=== PATIENT | male | born 1980 | race Caucasian/White ===

== ENCOUNTER → 2017-06-03 | Outpatient (CLI) | payer OTHER ==
--- NOTE | 2017-06-03 20:58 | MR ---
EXAMINATION TYPE: MR hand LT wo con DATE OF EXAM: 06/03/2017 COMPARISON: NONE HISTORY: 37-year-old male with left wrist/hand pain x 4 months, fell and caught himself with hands Technique: Multiplanar, multisequence images of the left hand were acquired. FINDINGS: There is unusual truncated appearance to the distal scaphoid pole with some bone fragments interposed between the scaphoid and trapezium measuring up to 5 mm. Uncertain if this represents rotary subluxa tion of the scaphoid. There is slight dorsal tilt of the lunate on the sagittal sequence. Spurring of the trapezium with prominent intraosseous cystic changes suggesting underlying triscaphe joint degen erative change. This exam is centered over the hand and these proximal carpal row is not well evaluat ed. No significant joint effusion. The flexor and extensor tendons show no gross abnormality. No suspicious bone marrow replacement or acute fracture identified IMPRESSION: 1. Unusual truncated appearance to the distal scaphoid pole with some bone fragments interposed betwe en the scaphoid and trapezium measuring up to 5 mm. The proximal carpal row is incompletely visualize d due to centering over the hand. Uncertain if this appearance reflects prior partial carpal bone res ection or rotatory subluxation secondary to underlying ligamentous injury. The lunate does appear to have some dorsal tilt on the sagittal series. Correlate for any DISI. Radiographic correlation recomm ended. 2. 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
== END | disposition home or self-care (01) ==
LOC: RADMRIMAIN 13:50
PROVIDERS: ATTEND Psychiatry & Neurology Pain Medicine
DX: M79.642 Pain in left hand (principal); M54.2 Cervicalgia; M54.5 Low back pain

== ENCOUNTER → 2017-07-01 | Outpatient (CLI) | payer OTHER ==
--- NOTE | 2017-07-01 17:25 | MR ---
EXAMINATION TYPE: MR cspine/lspine wo con DATE OF EXAM: 07/01/2017 COMPARISON: Plain film 08/08/2016 HISTORY: cervicalgia, lumbago TECHNIQUE: Multiplanar, multisequence imaging of the lumbar and cervical spine is performed without I V contrast. FINDINGS: Cervical spine MRI: Loss of normal cervical lordosis may be due to muscle spasm. Cervical cord signal is normal. Cervical vertebral bodies show preserved height, alignment, there is minimal endplate dis cogenic marrow signal change with spondylosis at C5-6, there is associated loss of disc height and si gnal. C2-3: Unremarkable C3-4: Within normal limits C4-5: No significant abnormality C5-6: There is a posterior extension of endplate disc complex causing anterolateral mass effect on th e thecal sac extending towards the left, there is bilateral foraminal encroachment left greater than right. On mild central stenosis. C6-7: Right posterior paracentral extension of endplate disc complex causes minimal anterior lateral mass effect on the thecal sac, foraminal encroachment on the right greater than left. C7-T1: Unremarkable IMPRESSION: Mild degenerative disc disease Lumbar spine MRI: Sagittal images of the lumbar spine show vertebral body heights and alignment to appear satisfactory. The intervertebral discs demonstrate mild loss of height and hydration at L4-5 and L5-S1. The conus medullaris is normal in position and signal. The bone marrow signal intensity is within normal limi ts. L5-S1: Small central posterior disc bulge causes minimal anterior mass effect on the thecal sac. No s ignificant central stenosis and there is mild foraminal encroachment present due to lateral extension of endplate disc complex left greater than right. L4-5: Increased signal at the posterior aspect of this is compatible with annular tear. Posterior bro ad-based disc bulge causes minimal anterior mass effect on the thecal sac. No foraminal encroachment. No other significant foraminal encroachment, central stenosis or evident disc herniation. IMPRESSION: Mild degenerative disc disease.
== END | disposition home or self-care (01) ==
LOC: RADMRIMAIN 14:07
PROVIDERS: ATTEND Psychiatry & Neurology Pain Medicine
DX: M50.30 Other cervical disc degeneration, unspecified cervical region (principal); M51.36 Other intervertebral disc degeneration, lumbar region; M79.642 Pain in left hand
CPT/HCPCS: 72141; 72148

== ENCOUNTER 2018-08-10 09:53 | Observation (INO) | payer OTHER ==
[2018-08-10] MEDS ORDERED: SODIUM CHLORIDE 0.9% 1,000 ML IV ONE ×3 (10:15→13:44)
[2018-08-10] MEDS ORDERED: ACETAMINOPHEN TAB 500 MG TAB PO STA (10:15)
--- NOTE | 2018-08-10 10:37 | ED ---
General Adult HPI - General Chief complaint: Shortness of Breath Stated complaint: dizziness, shaking, sob Time Seen by Provider: 08/10/18 10:15 Source: patient, RN notes reviewed, old records reviewed Mode of arrival: ambulatory Limitations: no limitations - History of Present Illness Initial comments: 38-year-old male presents for evaluation of dyspnea and facial swelling. Patient had right central incisor pulled at his dentist office this morning. He was prescribed amoxicillin and Motrin. After the procedure the patient began to develop some dyspnea. He reports that he's had facial swelling for the past 2 days which is treated prior to tooth extraction. Over the tooth was pulled he was told that he had a large abscess which according to the patient was restrained. He took his amoxicillin this morning as well as Motrin however symptoms of worsened. He does have right-sided facial swelling which she states is improved from previous. His had subjective fever and chills. No cough. No history of drugs or alcohol use. - Related Data Home Medications Medication Instructions Recorded Confirmed Amoxicillin 1,000 mg PO ONCE 08/10/18 08/10/18 Amoxicillin 500 mg PO Q8H 08/10/18 08/10/18 Ibuprofen 800 mg PO TID 08/10/18 08/10/18 Allergies Allergy/AdvReac Type Severity Reaction Status Date / Time No Known Allergies Allergy Verified 08/10/18 10:36 Review of Systems ROS Statement: Those systems with pertinent positive or pertinent negative responses have been documented in the HPI. ROS Other: All systems not noted in ROS Statement are negative. Past Medical History Past Medical History: GERD/Reflux History of Any Multi-Drug Resistant Organisms: None Reported Past Surgical History: Hernia Repair, Orthopedic Surgery Additional Past Surgical History / Comment(s): L wrist Past Psychological History: No Psychological Hx Reported Smoking Status: Former smoker Past Alcohol Use History: None Reported Past Drug Use History: None Reported General Exam Limitations: no limitations General appearance: lethargic Head exam: Present: atraumatic, normocephalic Eye exam: Present: PERRL, EOMI, periorbital swelling (Right periorbital swelling , and swelling over the right maxillary sinus), periorbital tenderness Neck exam: Present: normal inspection. Absent: tenderness, meningismus Respiratory exam: Present: normal lung sounds bilaterally. Absent: respiratory distress, wheezes Cardiovascular Exam: Present: normal rhythm, tachycardia GI/Abdominal exam: Present: soft. Absent: distended, tenderness Extremities exam: Present: normal inspection, normal capillary refill. Absent: pedal edema Neurological exam: Present: alert, oriented X3. Absent: motor sensory deficit Psychiatric exam: Present: normal affect, normal mood Skin exam: Present: warm, dry, intact. Absent: cyanosis, diaphoretic Course Vital Signs 08/10/18 08/10/18 08/10/18 09:58 10:12 10:40 Temperature 99.9 F H Pulse Rate 133 H 128 H Respiratory 18 Rate Blood Pressure 134/98 125/79 O2 Sat by Pulse 95 96 92 L Oximetry 08/10/18 08/10/18 08/10/18 11:00 11:20 12:00 Temperature Pulse Rate 124 H 117 H 116 H Respiratory Rate Blood Pressure 125/79 133/89 112/68 O2 Sat by Pulse 93 L 92 L 94 L Oximetry 08/10/18 08/10/18 08/10/18 12:40 13:00 13:30 Temperature Pulse Rate 112 H 105 H Respiratory Rate Blood Pressure 111/70 111/70 105/68 O2 Sat by Pulse 95 96 Oximetry 08/10/18 08/10/18 14:00 14:30 Temperature Pulse Rate 104 H 96 Respiratory Rate Blood Pressure 105/68 105/68 O2 Sat by Pulse 96 96 Oximetry EKG Findings - EKG Comments: EKG Findings:: EKG: Sinus tachycardia, rate of 120, DC interval 152, QRS duration 72, QTC [address] segment elevation or depression Medical Decision Making - Medical Decision Making 38-year-old male presenting for evaluation facial swelling and pain, and dyspnea. Patient had tooth extracted this morning with abscess drainage by his dentist. Initial evaluation, patient is febrile and tachycardic. Laboratory studies obtained. Patient has normal CBC although he has left shift with 9.1 neutrophils. He has acute kidney injury with a creatinine of 1.56. Chest x- ray is negative for focal pneumonia. CT is obtained of the orbit and maxillary sinus, this does show concern for abscess formation, this was likely abscess drained by his dentist earlier today. Symptoms may be related to ALLERGIC reaction, patient was on amoxicillin. He will be switched to clindamycin. He is admitted for continued IV hydration and continued IV antibiotics. - Lab Data Result diagrams: 08/10/18 10:29 08/10/18 10:29 Lab Results 08/10/18 08/10/18 08/10/18 Range/Units 10:29 10:29 10:29 WBC 10.5 (3.8-10.6) k/uL RBC 5.38 (4.30-5.90) m/uL Hgb 15.2 (13.0-17.5) gm/dL Hct 46.7 (39.0-53.0) % MCV 86.8 (80.0-100.0) fL MCH 28.3 (25.0-35.0) pg MCHC 32.7 (31.0-37.0) g/dL RDW 13.4 (11.5-15.5) % Plt Count 190 (150-450) k/uL Neutrophils % 87 % Lymphocytes % 9 % Monocytes % 3 % Eosinophils % 0 % Basophils % 0 % Neutrophils # 9.1 H (1.3-7.7) k/uL Lymphocytes # 0.9 L (1.0-4.8) k/uL Monocytes # 0.3 (0-1.0) k/uL Eosinophils # 0.0 (0-0.7) k/uL Basophils # 0.0 (0-0.2) k/uL PT (9.0-12.0) sec INR (<1.2) APTT (22.0-30.0) sec Sodium (137-145) mmol/L Potassium (3.5-5.1) mmol/L Chloride (98-107) mmol/L Carbon Dioxide (22-30) mmol/L Anion Gap mmol/L BUN (9-20) mg/dL Creatinine (0.66-1.25) mg/dL Est GFR (CKD-EPI)AfAm (>60 ml/min/1.73 sqM) Est GFR (CKD-EPI)NonAf (>60 ml/min/1.73 sqM) Glucose (74-99) mg/dL Plasma Lactic Acid Randy 1.5 (0.7-2.0) mmol/L Calcium (8.4-10.2) mg/dL Magnesium (1.6-2.3) mg/dL Total Bilirubin (0.2-1.3) mg/dL AST (17-59) U/L ALT (21-72) U/L Alkaline Phosphatase (38-126) U/L Total Creatine Kinase 37 L (55-170) U/L CK-MB (CK-2) 0.3 (0.0-2.4) ng/mL CK-MB (CK-2) Rel Index 0.8 Troponin I <0.012 (0.000-0.034) ng/mL Total Protein (6.3-8.2) g/dL Albumin (3.5-5.0) g/dL 08/10/18 08/10/18 Range/Units 10:29 10:29 WBC (3.8-10.6) k/uL RBC (4.30-5.90) m/uL Hgb (13.0-17.5) gm/dL Hct (39.0-53.0) % MCV (80.0-100.0) fL MCH (25.0-35.0) pg MCHC (31.0-37.0) g/dL RDW (11.5-15.5) % Plt Count (150-450) k/uL Neutrophils % % Lymphocytes % % Monocytes % % Eosinophils % % Basophils % % Neutrophils # (1.3-7.7) k/uL Lymphocytes # (1.0-4.8) k/uL Monocytes # (0-1.0) k/uL Eosinophils # (0-0.7) k/uL Basophils # (0-0.2) k/uL PT 10.1 (9.0-12.0) sec INR 1.0 (<1.2) APTT 20.9 L (22.0-30.0) sec Sodium 141 (137-145) mmol/L Potassium 5.1 (3.5-5.1) mmol/L Chloride 106 (98-107) mmol/L Carbon Dioxide 21 L (22-30) mmol/L Anion Gap 14 mmol/L BUN 25 H (9-20) mg/dL Creatinine 1.56 H (0.66-1.25) mg/dL Est GFR (CKD-EPI)AfAm 64 (>60 ml/min/1.73 sqM) Est GFR (CKD-EPI)NonAf 56 (>60 ml/min/1.73 sqM) Glucose 123 H (74-99) mg/dL Plasma Lactic Acid Randy (0.7-2.0) mmol/L Calcium 9.7 (8.4-10.2) mg/dL Magnesium 1.9 (1.6-2.3) mg/dL Total Bilirubin 1.0 (0.2-1.3) mg/dL AST 30 (17-59) U/L ALT 22 (21-72) U/L Alkaline Phosphatase 96 (38-126) U/L Total Creatine Kinase (55-170) U/L CK-MB (CK-2) (0.0-2.4) ng/mL CK-MB (CK-2) Rel Index Troponin I (0.000-0.034) ng/mL Total Protein 7.8 (6.3-8.2) g/dL Albumin 4.3 (3.5-5.0) g/dL Disposition Clinical Impression: Acute kidney injury, Dehydration Disposition: ADMITTED IP TO THIS HOSP Condition: Stable Is patient prescribed a controlled substance at d/c from ED?: No Referrals: None,Stated [Primary Care Provider] - 1-2 days Decision to Admit Reason: Admit from EC Decision Date: 08/10/18 Decision Time: 14:10
[2018-08-10 10:42] LABS: Basophils % (A) 0 %; Eosinophils % (A) 0 %; HCT 46.7 % (39.0-53.0); HGB 15.2 gm/dL (13.0-17.5); Lymphocytes # (A) 0.9 k/uL (1.0-4.8); Lymphocytes % (A) 9 %; MCH 28.3 pg (25.0-35.0); MCHC 32.7 g/dL (31.0-37.0); MCV 86.8 fL (80.0-100.0); Mean Platelet Volume 7.8; Monocytes # (A) 0.3 k/uL (0-1.0); Monocytes % (A) 3 %; Neutrophils # (A) 9.1 k/uL (1.3-7.7); Neutrophils % (A) 87 %; Platelet Count 190 k/uL (150-450); RBC 5.38 m/uL (4.30-5.90); RDW 13.4 % (11.5-15.5); WBC 10.5 k/uL (3.8-10.6)
[2018-08-10] MEDS ORDERED: ACETAMINOPHEN IV (For NPO) 1,000 MG in EMPTY BAG 1 BAG IVPB ONE (10:45)
[2018-08-10 10:49] LABS: Albumin 4.3 g/dL (3.5-5.0); Calcium 9.7 mg/dL (8.4-10.2); Magnesium 1.9 mg/dL (1.6-2.3); Potassium 5.1 mmol/L (3.5-5.1); Total Protein 7.8 g/dL (6.3-8.2)
[2018-08-10] MEDS ORDERED: KETOROLAC 30 MG/ML 1 ML VIAL IVP STA (10:59)
[2018-08-10] MEDS ORDERED: CLINDAMYCIN 600 MG in DEXTROSE 5% IN WATER 50 ML IVPB STA ×2 (11:05)
[2018-08-10 11:07] LABS: Creatine Kinase 37 U/L (55-170)
[2018-08-10 11:17] LABS: Prothrombin Time 10.1 sec (9.0-12.0)
[2018-08-10 11:18] LABS: Creatine Kinase MB 0.3 ng/mL (0.0-2.4); Troponin I <0.012 ng/mL (0.000-0.034)
[2018-08-10 11:28] LABS: Partial Thromboplastin Time 20.9 sec (22.0-30.0)
--- NOTE | 2018-08-10 11:57 | CT ---
EXAMINATION TYPE: CT facial bones w con DATE OF EXAM: 08/10/2018 COMPARISON: None HISTORY: Rt eye, Rt cheek swelling after tooth being pulled this AM CT DLP: 286.8 mGycm Automated exposure control for dose reduction was used. CONTRAST: CT scan of the facial bones is performed with IV Contrast, patient injected with 100 mL of Isovue 300 . TECHNIQUE: CT scan of the sinuses is performed without contrast, axial images are obtained, coronal r eformatted images are also reviewed. FINDINGS: Lucency is present in the right maxilla compatible with patient's history of recent tooth r emoval, gas density punctate focus also present at the site of tooth removal, there may be periapical abscess or the gas density may be due to the procedure. Immediately superficial to the maxilla at th is level there is a low density region with small punctate focus of gas measuring 16 x 6 x 18 mm with wall enhancement suggestive of small abscess, indeterminate fluid collection. Subcutaneous edema cor relates with patient's history of facial swelling. Orbits show symmetric appearance. Mucosal disease is present within the maxillary sinus on the right, ostiomeatal units are patent alth ough the infundibulum is narrowed on the right due to sinus disease, inflammatory change also present in the ethmoid air cells. IMPRESSION: Postprocedural changes as described. Correlate for possible abscess or fistula to the max illa at the site of patient's dental procedure.
--- NOTE | 2018-08-10 12:32 | XR ---
EXAMINATION TYPE: XR chest 2V DATE OF EXAM: 08/10/2018 COMPARISON: 08/08/2016 HISTORY: Fever, cough and shortness of breath TECHNIQUE: Frontal and lateral views of the chest are obtained. FINDINGS: There is no focal air space opacity, pleural effusion, or pneumothorax seen. Mild central peribronchial cuffing is seen. The cardiac silhouette size is within normal limits. The osseous str uctures are intact. IMPRESSION: No focal consolidation to suggest pneumonia. Mild central peribronchial cuffing. Correla te for bronchitis.
[2018-08-10] MEDS ORDERED: NALOXONE 0.4 MG/ML 1 ML VIAL IV PRN (14:59)
[2018-08-10] MEDS ORDERED: MORPHINE SULFATE 4 MG/ML SYRINGE IVP STA (15:03)
[2018-08-10] MEDS ORDERED: ALPRAZolam 0.25 MG TAB PO PRN (17:09)
[2018-08-10] MEDS: CLINDAMYCIN 600 MG in DEXTROSE 5% IN WATER 50 ML IVPB SCH ×2 (19:00)
[2018-08-10] MEDS: SODIUM CHLORIDE 0.9% 1,000 ML IV SCH ×2 (19:00→21:53)
[2018-08-10] MEDS ORDERED: TEMAZEPAM 15 MG CAP PO PRN (21:53)
[2018-08-10] MEDS: MORPHINE SULFATE 4 MG/ML SYRINGE IV PRN (21:56)
[2018-08-10] MEDS: HEPARIN SODIUM,PORCINE 5,000 UNIT/ML 1 ML VIAL SQ SCH (21:56)
[2018-08-10 22:43] LABS: Appearance,Urine Clear (Clear); Bilirubin,Urine Negative (Negative); Blood,Urine Trace (Negative); Color,Urine Light Yellow; Glucose,Urine (UA) Negative (Negative); Ketones,Urine Negative (Negative); Leukocyte Esterase,Urine Negative (Negative); Mucus,Urine Rare /hpf; Nitrite,Urine Negative (Negative); Protein,Urine Negative (Negative); Specific Gravity,Urine 1.014 (1.001-1.035); Urobilinogen,Urine <2.0 mg/dL (<2.0)
[2018-08-10] MEDS: AMPICILLIN-SULBACTAM 3 GM in SODIUM CHLORIDE 0.9% 100 ML IVPB SCH (23:49)
--- NOTE | 2018-08-11 00:49 | HP ---
HISTORY AND PHYSICAL DATE OF SERVICE: 08/10/2018. CHIEF COMPLAINT: Pain and swelling of the right side of the face and dehydration. HISTORY OF PRESENT ILLNESS: This 38-year-old gentleman, not being followed by any primary care physician in the outpatient setting, has a past history GERD, and DJD, also had a dental abscess on the right central incisor. The patient went to the dental office and the patient was prescribed amoxicillin and Motrin after extraction. The patient had increasing pain and swelling. The patient came to [facility] and was admitted for evaluation and treatment. A facial CT scan was done which showed possible changes and abscess or in the maxilla also. There is no history of any fevers or rigors. No history of headache, loss of consciousness, seizures. PAST MEDICAL HISTORY: History of GERD, DJD, history of hernia repair. MEDICATIONS: Home medications are: 1. Amoxicillin 500 mg every 8 hours. 2. Bupropion 800 mg t.i.d. ALLERGIES: None. FAMILY HISTORY: History of liver disease, cancer, hepatitis C. SOCIAL HISTORY: Previous history of smoking. No history of alcohol intake. REVIEW OF SYSTEMS: ENT: As mentioned earlier. CARDIOVASCULAR: No angina. RESPIRATORY: As mentioned earlier. GI: No nausea or vomiting. : NO dysuria. NERVOUS SYSTEM: No numbness or weakness. ALLERGY/IMMUNOLOGY: None. MUSCULOSKELETAL: As mentioned. HEMATOLOGY: No history of anemia. ENDOCRINE: No history of diabetes or hypothyroidism. CONSTITUTIONAL: As mentioned. DERMATOLOGY: Negative. RHEUMATOLOGY: As mentioned earlier. PSYCHIATRY: As mentioned earlier. PHYSICAL EXAMINATION: Alert, oriented x3. Pulse 80, blood pressure 103/60, respirations 16, temperature normal, pulse ox 97% on room air. HEENT: Conjunctivae normal. Oral mucosa moist. Right-sided facial swelling and some tenderness also present on the right. Submandibular lymphadenopathy also present. CARDIOVASCULAR: S1 and S2 muffled. LUNGS: Breath sounds diminished at the bases. No rhonchi, no crackles. ABDOMEN: Soft, nontender. No masses palpable. LEGS: No edema, no swelling. NERVOUS SYSTEM: Higher functions as mentioned earlier. Moves all 4 limbs. No focal motor or sensory deficits. LYMPHATICS: No lymph nodes palpable in the neck, axillae or groin. SKIN: No ulcer, rash, bleeding. LABS: At this time shows WBC 10.2, hemoglobin 15.2, creatinine is 1.56. ASSESSMENT: 1. Right-sided dental abscess and cellulitis. 2. Increased creatinine with possible chronic kidney disease stage III. 3. Gastroesophageal reflux disease. 4. Degenerative joint disease. 5. Scoliosis. 6. Hernia repair. RECOMMENDATIONS AND DISCUSSION: In this 38-year-old gentleman who presented with multiple complex medical issues , we will monitor the patient closely, continue the current management and symptomatic treatment. Otherwise we will initiate broad-spectrum IV antibiotics. I would also recommend infectious disease evaluation and repeat labs. Symptomatic treatment of the pain. Guarded prognosis because of multiple complex medical issues. Further recommendations to follow. MMODL / IJN: [id number] / [id number]
[2018-08-11] MEDS: CLINDAMYCIN 600 MG in DEXTROSE 5% IN WATER 50 ML IVPB SCH ×4 (03:33→10:56)
[2018-08-11] MEDS: MORPHINE SULFATE 4 MG/ML SYRINGE IV PRN ×3 (03:33→23:37)
[2018-08-11] MEDS: AMPICILLIN-SULBACTAM 3 GM in SODIUM CHLORIDE 0.9% 100 ML IVPB SCH ×4 (05:03→23:29)
[2018-08-11] MEDS: SODIUM CHLORIDE 0.9% 1,000 ML IV SCH ×3 (05:03→18:27)
[2018-08-11] MEDS: HYDROcodone/APAP 5-325MG 1 EACH TAB PO PRN ×3 (05:05→20:49)
[2018-08-11] MEDS: HEPARIN SODIUM,PORCINE 5,000 UNIT/ML 1 ML VIAL SQ SCH ×2 (08:16→20:55)
[2018-08-11] MEDS: PANTOPRAZOLE 40 MG TABLET PO SCH (08:16)
[2018-08-11 09:05] LABS: ALT 21 U/L (21-72); AST 16 U/L (17-59); Alkaline Phosphatase 69 U/L (38-126); Anion Gap 9 mmol/L; Blood Urea Nitrogen 12 mg/dL (9-20); Calcium 8.5 mg/dL (8.4-10.2); Carbon Dioxide 24 mmol/L (22-30); Chloride 106 mmol/L (98-107); Glucose 94 mg/dL (74-99); Potassium 4.3 mmol/L (3.5-5.1); Sodium 139 mmol/L (137-145); Total Bilirubin 0.5 mg/dL (0.2-1.3); Total Protein 5.8 g/dL (6.3-8.2)
[2018-08-11 09:07] LABS: Basophils % (A) 0 %; Eosinophils % (A) 0 %; HCT 37.4 % (39.0-53.0); HGB 12.4 gm/dL (13.0-17.5); Lymphocytes # (A) 1.6 k/uL (1.0-4.8); Lymphocytes % (A) 17 %; MCH 29.3 pg (25.0-35.0); MCHC 33.2 g/dL (31.0-37.0); MCV 88.3 fL (80.0-100.0); Mean Platelet Volume 7.8; Monocytes # (A) 0.7 k/uL (0-1.0); Monocytes % (A) 8 %; Neutrophils # (A) 6.6 k/uL (1.3-7.7); Neutrophils % (A) 70 %; Platelet Count 195 k/uL (150-450); RBC 4.23 m/uL (4.30-5.90); RDW 13.5 % (11.5-15.5); WBC 9.4 k/uL (3.8-10.6)
--- NOTE | 2018-08-11 17:56 | P.CONS ---
History of Present Illness - Reason for Consult Consult date: 08/11/18 - Chief Complaint jaw pain - History of Present Illness 38 year old male with a history of dental problems was seen at the [facility] for an abscess of the right upper incisor which required extraction and antibiotic therapy was begun with oral Augmentin.despite the removal of the infected tooth and antibiotic therapy he continued to have increasing pain and swelling to the right upper jaw. He had [id number] medications to take at home along with antibiotic. It continued to worsen. Difficulty chewing and swallowing and became febrile. Consequently presented to the emergency center. Computed tomography scan was performed showing evidence of the significant infection in the area, calcium the patient was admitted for antibiotic therapy infectious diseases oral surgery consults in progress. It appears over the last day he is now considerably improved with the intravenous antibiotic therapy and current medications. He is still somewhat uncomfortable but is denying high-grade fevers chills or rigors or sweats. He is denying significant nausea or emesis. Able to eat soft food without difficulties. Review of Systems HEENT:headache is much improved, he has the difficulties with the significant pain to the right upper jaw into the right maxillary sinus. Lungs: Denies significant shortness of breath, cough, sputum production, or hemoptysis. Cardiovascular: Denies significant shortness of breath, chest pain, chest wall pain, orthopnea, dyspnea on exertion, syncope Gastrointestinal:Denies nausea, vomiting, diarrhea, constipation, hematemesis, melena, hematochezia. No no significant change of bowel habit noticed. Musculoskeletal: denies significant myalgias or arthralgias. No new joint swelling. Denies new back pain. Skin: Denies new rash or lesions. No new ulcers or wounds are related.. Neuro: Denies headache or visual change. Denies any new onset weakness or difficulty with ambulation. Denies falls or seizures. Psychiatric:Denies anxiety or depression. Endocrine: Denies significant fatigue, denies significant weight loss or weight gain. Past Medical History Past Medical History: GERD/Reflux, Osteoarthritis (OA) Additional Past Medical History / Comment(s): SCOLIOSIS,"2 BULGING DISC" "PINCHED NERVE", CHRONIC BACK PAIN, PAST BLEEDING ULCERS X2, ARHTITIS LT WRIST( PAST INJURY SHATTERED WRITS(SX), VLADEMAR CARPAL TUNNEL, ADHD CHILD. History of Any Multi-Drug Resistant Organisms: None Reported Past Surgical History: Hernia Repair, Orthopedic Surgery Additional Past Surgical History / Comment(s): 08-10-18 tooth extracted on abx/motrin other hx:L wrist sx(bone removed), egd, rt ing hernia repair. Past Anesthesia/Blood Transfusion Reactions: No Reported Reaction Additional Past Anesthesia/Blood Transfusion Reaction / Comm: has vivian had any blood transfusion Additional Psychological History / Comment(s): lives at the significant other. Pet dog in the home. Works as a milk pickup truck driver. No experience. Stopped smoking 1-1/2 years ago. Denies significant alcohol or recreational drug use. No international travel Smoking Status: Former smoker - Past Family History Mother Family Medical History: Cancer, Liver Disease Additional Family Medical History / Comment(s): colon ca, hep-c Father Family Medical History: Cancer, Coronary Artery Disease (CAD), Hypertension, Vascular Disorder Additional Family Medical History / Comment(s): stents, skin cancer Medications and Allergies Home Medications and Allergies Comment(s): Current Medications Acetaminophen (Tylenol Tab) 650 mg PO Q6HR PRN PRN Reason: Mild Pain or Fever > 100.5 Hydrocodone Bitart/Acetaminophen ([place] 5-325) 1 each PO Q6HR PRN PRN Reason: Pain Last Admin: 08/11/18 11:42 Dose: 1 each Alprazolam (Xanax) 0.25 mg PO TID PRN PRN Reason: Anxiety Heparin Sodium (Porcine) (Heparin) 5,000 unit SQ Q12HR [facility] Last Admin: 08/11/18 08:16 Dose: 5,000 unit Clindamycin Phosphate 600 mg/ (Dextrose/Water) 54 mls @ 50 mls/hr IVPB Q8H [facility] Last Admin: 08/11/18 10:56 Dose: 50 mls/hr Sodium Chloride (Saline 0.9%) 1,000 mls @ 150 mls/hr IV .Q6H40M [facility] Last Admin: 08/11/18 11:00 Dose: Not Given Ampicillin Sodium/Sulbactam (Sodium 3 gm/ Sodium Chloride) 100 mls @ 200 mls/ hr IVPB Q6HR [facility] Last Admin: 08/11/18 11:41 Dose: 200 mls/hr Morphine Sulfate (Morphine Sulfate (Inj)) 4 mg IV Q4HR PRN PRN Reason: Severe Pain Last Admin: 08/11/18 15:44 Dose: 4 mg Naloxone HCl (Narcan) 0.2 mg IV Q2M PRN PRN Reason: Opioid Reversal Pantoprazole Sodium (Protonix) 40 mg PO AC-BRKFST SY Last Admin: 08/11/18 08:16 Dose: 40 mg Temazepam (Restoril) 15 mg PO HS PRN PRN Reason: Insomnia Home Medications Medication Instructions Recorded Confirmed Type Amoxicillin 1,000 mg PO ONCE 08/10/18 08/10/18 History Amoxicillin 500 mg PO Q8H 08/10/18 08/10/18 History Ibuprofen 800 mg PO TID 08/10/18 08/10/18 History Allergies Allergy/AdvReac Type Severity Reaction Status Date / Time No Known Allergies Allergy Verified 08/10/18 10:36 Physical Exam Vitals: Vital Signs Temp Pulse Pulse Resp BP BP Pulse Ox 08/11/18 14:15 98.7 F 60 16 113/78 96 08/11/18 08:16 16 08/11/18 07:40 97.8 F 74 16 115/63 96 08/11/18 06:21 98.3 F 08/11/18 05:08 100.3 F H 99 16 113/69 94 L 08/10/18 22:00 98.3 F 95 18 118/73 98 08/10/18 20:41 80 16 103/69 97 08/10/18 20:40 87 103/68 08/10/18 20:30 90 103/68 95 08/10/18 20:00 84 117/78 96 08/10/18 19:30 87 117/78 97 08/10/18 19:02 89 18 117/78 96 Intake and Output 08/11/18 08/11/18 08/11/18 06:59 14:59 22:59 Other: # Voids 3 HEENT: Anicteric conjunctiva are pink and moist nasal mucosa grossly intact without significant lesions, there is no thrush.The extraction site from the right upper incisor does not have expressible purulence the area is still very tender to manipulation. The significant facial swelling that was noted his much improved and the right eye is now completely open with evidence of some minimal ecchymosis over his lower aspect. There is no significant lymphadenopathy noted cervical at this time Neck: The neck is supple without significant lymphadenopathy or thyromegaly. Lungs: Good bilateral air entry without significant crackles only few expiratory wheezes are heard. There is no significant bronchial sounds. There is no egophony or dullness. Heart: Regular rate and rhythm with an audible S1-S2, no S3 no S4. There is no significant murmur click or rub, PMI was nondisplaced. Abdomen: Positive bowel sounds soft and nontender without palpable masses or organomegaly. There was no guarding or rebound. Extremities: The upper extremities have excellent pulses they are symmetric, no significant petechiae or telangiectasia. No splinter hemorrhages were noted. The lower extremities are free from significant edema. The peripheral pulses were 2+ and symmetric. Neuro: Awake alert oriented to person place and time. There are no acute new gross focal sensory motor deficits. Skin: [place] tattoo but none are new no lesions are seen Results CBC & Chem 7: 08/11/18 08:23 08/11/18 08:23 Labs: Abnormal Lab Results - Last 24 Hours (Table) 08/10/18 08/11/18 08/11/18 Range/Units 22:30 08:23 08:23 RBC 4.23 L (4.30-5.90) m/uL Hgb 12.4 L (13.0-17.5) gm/dL Hct 37.4 L (39.0-53.0) % AST 16 L (17-59) U/L Total Protein 5.8 L (6.3-8.2) g/dL Albumin 3.0 L (3.5-5.0) g/dL Urine Blood Trace H (Negative) Urine Mucus Rare H (None) /hpf Microbiology - Last 24 Hours (Table) 08/10/18 10:29 Blood Culture - Preliminary Blood No Growth after 24 hours Laboratory Results WBC 9.4 k/uL (3.8-10.6) 08/11/18 08:23 RBC 4.23 m/uL (4.30-5.90) L 08/11/18 08:23 Hgb 12.4 gm/dL (13.0-17.5) L 08/11/18 08:23 Hct 37.4 % (39.0-53.0) L 08/11/18 08:23 MCV 88.3 fL (80.0-100.0) 08/11/18 08: MCH 29.3 pg (25.0-35.0) 08/11/18 08: MCHC 33.2 g/dL (31.0-37.0) 08/11/18 08:23 RDW 13.5 % (11.5-15.5) 08/11/18 08:23 Plt Count 195 k/uL (150-450) 08/11/18 08:23 Neutrophils % 70 % 08/11/18 08:23 Lymphocytes % 17 % 08/11/18 08:23 Monocytes % 8 % 08/11/18 08:23 Eosinophils % 0 % 08/11/18 08: Basophils % 0 % 08/11/18 08:23 Neutrophils # 6.6 k/uL (1.3-7.7) 08/11/18 08:23 Lymphocytes # 1.6 k/uL (1.0-4.8) 08/11/18 08: Monocytes # 0.7 k/uL (0-1.0) 08/11/18 08: Eosinophils # 0.0 k/uL (0-0.7) 08/11/18 08:23 Basophils # 0.0 k/uL (0-0.2) 08/11/18 08:23 PT 10.1 sec (9.0-12.0) 08/10/18 10:29 INR 1.0 (<1.2) 08/10/18 10:29 APTT 20.9 sec (22.0-30.0) L 08/10/18 10:29 Sodium 139 mmol/L (137-145) 08/11/18 08:23 Potassium 4.3 mmol/L (3.5-5.1) 08/11/18 08:23 Chloride 106 mmol/L (98-107) 08/11/18 08:23 Carbon Dioxide 24 mmol/L (22-30) 08/11/18 08:23 Anion Gap 9 mmol/L 08/11/18 08:23 BUN 12 mg/dL (9-20) 08/11/18 08:23 Creatinine 0.93 mg/dL (0.66-1.25) 08/11/18 08:23 Est GFR (CKD-EPI)AfAm >90 (>60 ml/min/1.73 sqM) 08/11/18 08:23 Est GFR (CKD-EPI)NonAf >90 (>60 ml/min/1.73 sqM) 08/11/18 08:23 Glucose 94 mg/dL (74-99) 08/11/18 08:23 Plasma Lactic Acid Randy 1.5 mmol/L (0.7-2.0) 08/10/18 10:29 Calcium 8.5 mg/dL (8.4-10.2) 08/11/18 08:23 Magnesium 1.9 mg/dL (1.6-2.3) 08/10/18 10:29 Total Bilirubin 0.5 mg/dL (0.2-1.3) 08/11/18 08:23 AST 16 U/L (17-59) L 08/11/18 08:23 ALT 21 U/L (21-72) 08/11/18 08:23 Alkaline Phosphatase 69 U/L (38-126) 08/11/18 08:23 Total Creatine Kinase 37 U/L (55-170) L 08/10/18 10:29 CK-MB (CK-2) 0.3 ng/mL (0.0-2.4) 08/10/18 10:29 CK-MB (CK-2) Rel Index 0.8 08/10/18 10: Troponin I <0.012 ng/mL (0.000-0.034) 08/10/18 10:29 Total Protein 5.8 g/dL (6.3-8.2) L 08/11/18 08:23 Albumin 3.0 g/dL (3.5-5.0) L 08/11/18 08:23 Urine Color Light Yellow 08/10/18 22:30 Urine Appearance Clear (Clear) 08/10/18 22:30 Urine pH 5.0 (5.0-8.0) 08/10/18 22:30 Ur Specific [place] 1.014 (1.001-1.035) 08/10/18 22:30 Urine Protein Negative (Negative) 08/10/18 22:30 Urine Glucose (UA) Negative (Negative) 08/10/18 22:30 Urine Ketones Negative (Negative) 08/10/18 22:30 Urine Blood Trace (Negative) H 08/10/18 22:30 Urine Nitrite Negative (Negative) 08/10/18 22:30 Urine Bilirubin Negative (Negative) 08/10/18 22:30 Urine Urobilinogen <2.0 mg/dL (<2.0) 08/10/18 22:30 Ur Leukocyte Esterase Negative (Negative) 08/10/18 22:30 Urine WBC 5 /hpf (0-5) 08/10/18 22:30 Urine Mucus Rare /hpf (None) H 08/10/18 22:30 Microbiology 08/10/18 10:29 Blood Blood Culture - Preliminary No Growth after 24 hours Comments: Computed tomography scan films reviewed with evidence of a concern to the abscess to the right maxillary area, maxillary sinus with some inflammation Assessment and Plan (1) Oral abscess Narrative/Plan: 38-year-old male presents to Hospital significant pain and swelling to the right side of his face related to the recent right upper incisor extraction due to the infected tooth. Despite oral antibiotic therapy he rapidly worsened and required admission for intravenous antibiotic therapy. The patient is feeling better but is still with fever 100.3 and not feeling well. He did have acute kidney injury at admission from dehydration that is now much improved. He has good urinary output. Antibiotic therapy is appropriate with Unasyn and that we'll continue an appropriate dose. Pain control will be enhanced with the addition of ketorolac now that his renal function has improved. Salt and soda mouthwash can be utilized to help with some of the oral discomfort. Soft high-protein diet will help his recovery. Current Visit: Yes Status: Acute Code(s): K12.2 - CELLULITIS AND ABSCESS OF MOUTH SNOMED Code(s): 62985456 (2) Right maxillary sinusitis Current Visit: Yes Status: Acute Code(s): J32.0 - CHRONIC MAXILLARY SINUSITIS SNOMED Code(s): 39117318 (3) Fever Current Visit: Yes Status: Acute Code(s): R50.9 - FEVER, UNSPECIFIED SNOMED Code(s): 863005016
[2018-08-11] MEDS: KETOROLAC 30 MG/ML 1 ML VIAL IVP SCH ×2 (18:26→23:30)
[2018-08-11] MEDS: SALT AND SODA MOUTHWASH 1,000 ML PO SCH ×2 (20:55→23:34)
--- NOTE | 2018-08-11 21:47 | PN ---
PROGRESS NOTE DATE OF SERVICE: 08/11/2018 This 38-year-old gentleman who was admitted with right side of the face with dental abscess and cellulitis is being closely monitored. Patient is on broad-spectrum IV antibiotics. Infectious Disease evaluation has been sought at this time. A face CAT scan showed suspicion abscess or fistula to the maxilla at the site of the patient's dental procedure also. No chest pain. No palpitations. No fever. EXAM: Alert and oriented x3. Pulse is 60, blood pressure 130/72, respirations 16, temperature 98.7, pulse ox 98% on room air. HEENT: Conjunctivae normal. Oral mucosa moist. Neck is no jugular venous distention. No carotid bruit. No lymph node enlargement. CARDIOVASCULAR: S1, S2. RESPIRATORY: Breath sounds diminished in the bases. No rhonchi, no crackles. ABDOMEN: Soft, nontender. NERVOUS SYSTEM: No focal deficits. Examination of the right face: Significant tenderness and swelling in the right face present. Submental lymphadenopathy also. LABS: WBC 9, hemoglobin 12.4, creatinine is 1.93. UA noted. ASSESSMENT: 1. Acute right-sided dental abscess and cellulitis with possible sepsis, present on admission. 2. Increased creatinine with possible acute renal failure possibly prerenal acute tubular necrosis, present on admission. 3. Gastroesophageal reflux disease. 4. Degenerative joint disease. 5. Scoliosis. 6. Hernia repair. RECOMMENDATIONS AND DISCUSSION: I recommend to continue current management and continue symptomatic treatment. Continue with antibiotics. Dental consultation. Infectious Disease evaluation. Continue rest of medications. Monitor labs. DVT prophylaxis. Guarded prognosis because of multiple complex medical issues. Discussed with the patient and also the family. Further recommendations to follow. MMODL / IJN: [id number] /
[2018-08-12] MEDS: SODIUM CHLORIDE 0.9% 1,000 ML IV SCH ×4 (01:19→20:21)
[2018-08-12] MEDS: AMPICILLIN-SULBACTAM 3 GM in SODIUM CHLORIDE 0.9% 100 ML IVPB SCH ×3 (06:20→17:16)
[2018-08-12] MEDS: KETOROLAC 30 MG/ML 1 ML VIAL IVP SCH ×3 (06:26→18:16)
[2018-08-12] MEDS: HYDROcodone/APAP 5-325MG 1 EACH TAB PO PRN ×2 (06:27→17:13)
[2018-08-12] MEDS: SALT AND SODA MOUTHWASH 1,000 ML PO SCH ×4 (06:28→20:21)
[2018-08-12] MEDS: HEPARIN SODIUM,PORCINE 5,000 UNIT/ML 1 ML VIAL SQ SCH ×2 (07:22→20:20)
[2018-08-12] MEDS: PANTOPRAZOLE 40 MG TABLET PO SCH (07:22)
[2018-08-12 10:17] LABS: HCT 36.8 % (39.0-53.0); MCH 29.3 pg (25.0-35.0); MCHC 32.7 g/dL (31.0-37.0); MCV 89.6 fL (80.0-100.0); Mean Platelet Volume 7.8; Platelet Count 201 k/uL (150-450); RBC 4.11 m/uL (4.30-5.90); RDW 13.6 % (11.5-15.5); WBC 8.3 k/uL (3.8-10.6)
[2018-08-12 10:24] LABS: Anion Gap 7 mmol/L; Blood Urea Nitrogen 10 mg/dL (9-20); Calcium 8.5 mg/dL (8.4-10.2); Carbon Dioxide 23 mmol/L (22-30); Chloride 109 mmol/L (98-107); Glucose 90 mg/dL (74-99); Potassium 4.3 mmol/L (3.5-5.1); Sodium 139 mmol/L (137-145)
[2018-08-12] MEDS: ACETAMINOPHEN TAB 325 MG TAB PO PRN ×2 (10:41→22:22)
[2018-08-12 12:09] LABS: Band Neutrophils % 4 %; Eosinophils # (M) 0.25 k/uL (0-0.7); Lymphocytes # (M) 1.66 k/uL (1.0-4.8); Monocytes # (M) 0.83 k/uL (0-1.0); Neutrophils % (M) 63 %; Nucleated Red Blood Cells 0 /100 WBC (0-0); Total Cells Counted 100
--- NOTE | 2018-08-12 21:57 | PN ---
PROGRESS NOTE DATE OF SERVICE: 08/12/2018 This 88-year-old gentleman, admitted with dental abscess, is on IV antibiotics. Patient also had facial cellulitis and facial swelling, which is improving at this time. No chest pain. No palpitations. No fever. EXAM: Alert and oriented x3. The pulse is 68, blood pressure 130/80, respirations 18, temperature 98.2, pulse ox 94% on room air. HEENT: Pupils equal. Conjunctivae normal. Neck is no jugular venous distention. No carotid bruit. No lymph node enlargement. CARDIOVASCULAR: S1, S2. RESPIRATORY: Breath sounds diminished in the bases. No rhonchi. No crackles. Abdomen soft. Nontender. Central nervous system: No focal deficits. Right facial fullness and swelling. LABS: WBC 8.3, hemoglobin ntd. BMP within normal limits. ASSESSMENT: 1. Acute right-sided dental abscess cellulitis with possible sepsis present on admission. 2. Right facial swelling. 3. Increased creatinine with possible acute renal failure secondary to prerenal acute tubular necrosis present on admission, improved. 4. History of GERD. 5. History of degenerative joint disease. 6. History of scoliosis. 7. History of hernia repair. RECOMMENDATIONS AND DISCUSSION: Continue current medications, monitoring and symptomatic treatment. Otherwise, continue the antibiotics. Closely follow with Infectious Disease. Guarded prognosis. Further recommendations to follow. MMODL / IJN: [id number] / MTDD
[2018-08-13] MEDS: SALT AND SODA MOUTHWASH 1,000 ML PO SCH ×3 (00:12→10:38)
[2018-08-13] MEDS: AMPICILLIN-SULBACTAM 3 GM in SODIUM CHLORIDE 0.9% 100 ML IVPB SCH ×3 (00:12→11:44)
[2018-08-13] MEDS: KETOROLAC 30 MG/ML 1 ML VIAL IVP SCH ×3 (00:12→11:44)
[2018-08-13 00:14] VITALS: RESP 16
[2018-08-13] MEDS: SODIUM CHLORIDE 0.9% 1,000 ML IV SCH ×2 (05:44→10:39)
[2018-08-13 07:33] VITALS: BP 107/69; PULSE 68; TEMP 97.9
[2018-08-13] MEDS: HEPARIN SODIUM,PORCINE 5,000 UNIT/ML 1 ML VIAL SQ SCH (08:01)
[2018-08-13] MEDS: PANTOPRAZOLE 40 MG TABLET PO SCH (08:01)
[2018-08-13] MEDS: HYDROcodone/APAP 5-325MG 1 EACH TAB PO PRN (09:16)
[2018-08-13 09:47] LABS: Basophils % (A) 0 %; Eosinophils # (A) 0.2 k/uL (0-0.7); Eosinophils % (A) 3 %; HCT 39.1 % (39.0-53.0); HGB 12.8 gm/dL (13.0-17.5); Lymphocytes # (A) 1.7 k/uL (1.0-4.8); Lymphocytes % (A) 23 %; MCH 28.5 pg (25.0-35.0); MCHC 32.8 g/dL (31.0-37.0); MCV 86.9 fL (80.0-100.0); Mean Platelet Volume 7.6; Monocytes # (A) 0.5 k/uL (0-1.0); Monocytes % (A) 6 %; Neutrophils # (A) 4.5 k/uL (1.3-7.7); Neutrophils % (A) 63 %; Platelet Count 246 k/uL (150-450); RBC 4.51 m/uL (4.30-5.90); RDW 13.4 % (11.5-15.5); WBC 7.2 k/uL (3.8-10.6)
[2018-08-13 10:16] LABS: Anion Gap 8 mmol/L; Blood Urea Nitrogen 8 mg/dL (9-20); Carbon Dioxide 25 mmol/L (22-30); Chloride 109 mmol/L (98-107); Glucose 84 mg/dL (74-99); Potassium 4.9 mmol/L (3.5-5.1); Sodium 142 mmol/L (137-145)
--- NOTE | 2018-08-13 13:28 | CONS ---
CONSULTATION DATE OF THE CONSULT: 08/13/2018 CHIEF COMPLAINT: "My face is swollen". HISTORY OF PRESENT ILLNESS: The patient is a 38-year-old male who had tooth #10 extracted on 08/08 at the [facility]. He was started on an antibiotic following the procedure. He states that he had a reaction to the medication and that the swelling had increased 24 hours following the extraction. He presented to the emergency room for evaluation and treatment. He was admitted and started on IV antibiotics. Patient currently states that he is doing mildly better. PAST MEDICAL HISTORY: His past medical history is unremarkable. He is a smoker. MEDICATIONS: His medications include IV Unasyn. PHYSICAL EXAMINATION: Physical examination reveals the patient to be alert and oriented x3. He is afebrile. He is tolerating a regular diet. Head and neck exam reveals mild swelling of the right infraorbital and perinasal space. The swelling is mildly firm. There is no swelling of the neck. There is no lymphadenopathy. Intraoral examination reveals tooth #7 to be extracted. There is mild vestibular swelling and there is no drainage. ASSESSMENT: Postoperative dental infection. PLAN: Continue the IV antibiotics with placement of heat to the right infraorbital region. The head of bed is to be elevated. Oral rinses were discussed. There is no surgical intervention at this time. I anticipate discharge in 1 to 2 days following the use of IV Unasyn. MMODL / IJN: [id number] /
--- NOTE | 2018-08-14 11:46 | DS ---
DISCHARGE SUMMARY DATE OF SERVICE: 08/13/2018 FINAL DIAGNOSES: 1. Acute right-sided dental abscess cellulitis with possible sepsis, present on admission, improved. 2. Right facial swelling. 3. Increased creatinine with possible acute renal failure secondary to prerenal acute tubular necrosis, present on admission, improved. 4. History of gastroesophageal reflux disease. 5. History of degenerative joint disease. 6. History of scoliosis. 7. History of hernia repair. DISCHARGE DISPOSITION: The patient will be discharged in stable condition with guarded prognosis. HISTORY OF PRESENT ILLNESS: This 38-year-old gentleman with a past medical history of multiple medical problems admitted after dental extraction with significant swelling and pain. The patient was treated with IV antibiotics. Patient improved significantly. Dental surgeon saw the patient and recommended outpatient followup. No chest pain or palpitation. On exam, alert and oriented x3. CARDIOVASCULAR: S1 and S2 muffled. ABDOMEN: Soft. NERVOUS SYSTEM: Minimal facial swelling, much improved. DISCHARGE ADVICE: 1. Diet is cardiac. 2. Activity limited until followup. 3. Follow up with primary physician. Patient would like to follow with Dr. Barahona in 2 to 3 days. 4. Follow up with dentist . MEDICATIONS: 1. Ibuprofen p.r.n. 2. Tylenol 650 q.6 p.r.n. 3. Augmentin one p.o. b.i.d. for 1 week. Once again, the patient will be discharged in a stable condition with guarded prognosis. MMODL / IJN: [id number] /
== END 2018-08-13 12:59 | disposition home or self-care (01) ==
LOC: EC 09:53 → 4MS4W 14:59
PROVIDERS: ADMIT Hospitalist; ATTEND Hospitalist
DX: K12.2 Cellulitis and abscess of mouth (principal); K04.7 Periapical abscess without sinus; E86.0 Dehydration; J32.0 Chronic maxillary sinusitis; L03.211 Cellulitis of face; N17.0 Acute kidney failure with tubular necrosis; K21.9 Gastro-esophageal reflux disease without esophagitis; M19.90 Unspecified osteoarthritis, unspecified site; M41.9 Scoliosis, unspecified; Z87.891 Personal history of nicotine dependence; Z83.49 Family history of other endocrine, nutritional and metabolic diseases; Z80.0 Family history of malignant neoplasm of digestive organs; Z82.49 Family history of ischemic heart disease and other diseases of the circulatory system; Z80.8 Family history of malignant neoplasm of other organs or systems
CPT/HCPCS: 36415; 70487; 71046; 80048; 80053; 81001; 82550; 82553; 83605; 83735; 84484; 85025; 85610; 85730; 87040; 93005; 96361; 96365; 96366; 96367; 96372; 96375; 96376; 99285

== ENCOUNTER 2019-09-18 10:50 | Emergency (ER) | payer OTHER ==
[2019-09-18] MEDS ORDERED: SODIUM CHLORIDE 0.9% 1,000 ML IV STA (11:11)
[2019-09-18] MEDS ORDERED: PANTOPRAZOLE 40 MG/10 ML VIAL IVP STA (11:11)
[2019-09-18] MEDS ORDERED: MORPHINE SULFATE 2 MG/ML SYRINGE IVP STA (11:11)
[2019-09-18] MEDS ORDERED: ONDANSETRON 4 MG/2 ML VIAL IVP STA (11:11)
[2019-09-18] MEDS ORDERED: MAG HYDROX/AL HYDROX/SIMETH 30 ML, HYOSCYAMINE ELIXIR 10 ML, LIDOCAINE VISCOUS 2% 10 ML PO STA ×3 (11:12)
--- NOTE | 2019-09-18 11:41 | ED ---
General Adult HPI - General Chief complaint: Abdominal Pain Stated complaint: GI bleed Time Seen by Provider: 09/18/19 11:03 Source: patient, RN notes reviewed, old records reviewed Mode of arrival: ambulatory Limitations: no limitations - History of Present Illness Initial comments: 39-year-old male history of gastric ulcer presenting for evaluation of epigastric pain nausea vomiting and diarrhea as well as black stool. Patient states symptoms have been progressive over one week. He's had epigastric pain and vomiting. Vomiting is been daily for the past 7 days. He has had watery diarrhea which progressed to solid stool in the last 24 hours but the last stool was black. He does admit to having Pepto-Bismol 2 days ago for his symptoms. Patient is otherwise healthy. - Related Data Home Medications Medication Instructions Recorded Confirmed Ibuprofen 800 mg PO TID 08/10/18 08/10/18 Previous Rx's Medication Instructions Recorded Acetaminophen Tab [Tylenol] 650 mg PO Q6HR PRN tab 08/13/18 Amoxicillin/Potassium Clav 1 each PO Q12HR #14 tab 08/13/18 [Augmentin 875-125 Tablet] Omeprazole [PriLOSEC] 20 mg PO AC-BID #60 cap 09/18/19 Ondansetron Odt [Zofran Odt] 4 mg PO Q8HR PRN #10 tab 09/18/19 Allergies Allergy/AdvReac Type Severity Reaction Status Date / Time No Known Allergies Allergy Verified 08/10/18 10:36 Review of Systems ROS Statement: Those systems with pertinent positive or pertinent negative responses have been documented in the HPI. ROS Other: All systems not noted in ROS Statement are negative. Past Medical History Past Medical History: GERD/Reflux, Osteoarthritis (OA) Additional Past Medical History / Comment(s): SCOLIOSIS,"2 BULGING DISC" "PINCHED NERVE", CHRONIC BACK PAIN, PAST BLEEDING ULCERS X2, ARHTITIS LT WRIST(PAST INJURY SHATTERED WRITS(SX), VALDEMAR CARPAL TUNNEL, ADHD CHILD. History of Any Multi-Drug Resistant Organisms: None Reported Past Surgical History: Hernia Repair, Orthopedic Surgery Additional Past Surgical History / Comment(s): 08-10-18 tooth extracted 08-10-18 on abx/motrin other hx:L wrist sx(bone removed), egd, rt ing hernia repair. Past Anesthesia/Blood Transfusion Reactions: No Reported Reaction Additional Past Anesthesia/Blood Transfusion Reaction / Comment(s): has vivian had any blood transfusion Past Psychological History: No Psychological Hx Reported Smoking Status: Former smoker Past Alcohol Use History: None Reported Past Drug Use History: None Reported - Past Family History Mother Family Medical History: Cancer, Liver Disease Additional Family Medical History / Comment(s): colon ca, hep-c Father Family Medical History: Cancer, Coronary Artery Disease (CAD), Hypertension, Vascular Disorder Additional Family Medical History / Comment(s): stents, skin cancer General Exam Limitations: no limitations General appearance: alert, in no apparent distress Head exam: Present: atraumatic, normocephalic Eye exam: Present: normal appearance, PERRL ENT exam: Present: normal exam Neck exam: Present: normal inspection. Absent: tenderness, meningismus Respiratory exam: Present: normal lung sounds bilaterally. Absent: respiratory distress, wheezes Cardiovascular Exam: Present: regular rate, normal rhythm GI/Abdominal exam: Present: soft, tenderness (Minimal epigastric tenderness, no right upper quadrant tenderness). Absent: distended Rectal exam: Present: normal inspection, normal rectal tone. Absent: black stool, bloody stool Extremities exam: Present: normal inspection, normal capillary refill. Absent: pedal edema Neurological exam: Present: alert, oriented X3, CN II-XII intact. Absent: motor sensory deficit Psychiatric exam: Present: normal affect, normal mood Skin exam: Present: warm, dry, intact. Absent: cyanosis, diaphoretic Course Vital Signs 09/18/19 09/18/19 10:57 12:13 Temperature 97.8 F Pulse Rate 65 85 Respiratory 18 16 Rate Blood Pressure 113/75 O2 Sat by Pulse 98 98 Oximetry Medical Decision Making - Medical Decision Making 39-year-old male with epigastric abdominal pain nausea vomiting diarrhea. Initial concern for possible rectal bleeding or melena given the history, Hemoccult is obtained is negative, hemoglobin stable, normal electrolytes, patient feeling much better on reevaluation after proton pump GI cocktail. He will be restarted on his proton pump inhibitor, he's given GI follow-up. He will return with worsening or changing symptoms. - Lab Data Result diagrams: 09/18/19 11:18 09/18/19 11:18 Lab Results 09/18/19 09/18/19 09/18/19 Range/Units 11:18 11:18 11:18 WBC 9.2 (3.8-10.6) k/uL RBC 4.77 (4.30-5.90) m/uL Hgb 14.4 (13.0-17.5) gm/dL Hct 41.9 (39.0-53.0) % MCV 87.8 (80.0-100.0) fL MCH 30.2 (25.0-35.0) pg MCHC 34.3 (31.0-37.0) g/dL RDW 12.5 (11.5-15.5) % Plt Count 228 (150-450) k/uL Neutrophils % 64 % Lymphocytes % 25 % Monocytes % 7 % Eosinophils % 0 % Basophils % 1 % Neutrophils # 5.9 (1.3-7.7) k/uL Lymphocytes # 2.3 (1.0-4.8) k/uL Monocytes # 0.6 (0-1.0) k/uL Eosinophils # 0.0 (0-0.7) k/uL Basophils # 0.1 (0-0.2) k/uL Sodium 136 L (137-145) mmol/L Potassium 4.1 (3.5-5.1) mmol/L Chloride 108 H (98-107) mmol/L Carbon Dioxide 22 (22-30) mmol/L Anion Gap 6 mmol/L BUN 14 (9-20) mg/dL Creatinine 0.98 (0.66-1.25) mg/dL Est GFR (CKD-EPI)AfAm >90 (>60 ml/min/1.73 sqM) Est GFR (CKD-EPI)NonAf >90 (>60 ml/min/1.73 sqM) Glucose 98 (74-99) mg/dL Calcium 9.7 (8.4-10.2) mg/dL Total Bilirubin 0.5 (0.2-1.3) mg/dL AST 15 L (17-59) U/L ALT 19 L (21-72) U/L Alkaline Phosphatase 54 (38-126) U/L Total Protein 6.9 (6.3-8.2) g/dL Albumin 4.3 (3.5-5.0) g/dL Amylase 44 (30-110) U/L Lipase 69 (23-300) U/L Stool Occult Blood Negative (Negative) Disposition Clinical Impression: Abdominal pain Disposition: HOME SELF-CARE Instructions (If sedation given, give patient instructions): Abdominal Pain (ED) Prescriptions: Omeprazole [PriLOSEC] 20 mg PO AC-BID #60 cap Ondansetron Odt [Zofran Odt] 4 mg PO Q8HR PRN #10 tab PRN Reason: Vomiting Is patient prescribed a controlled substance at d/c from ED?: No Referrals: None,Stated [Primary Care Provider] - 1-2 days Lm Rubi MD [STAFF PHYSICIAN] - 1-2 days Time of Disposition: 12:55
[2019-09-18 11:55] LABS: Basophils # (A) 0.1 k/uL (0-0.2); Basophils % (A) 1 %; Eosinophils % (A) 0 %; HCT 41.9 % (39.0-53.0); HGB 14.4 gm/dL (13.0-17.5); Lymphocytes # (A) 2.3 k/uL (1.0-4.8); Lymphocytes % (A) 25 %; MCH 30.2 pg (25.0-35.0); MCHC 34.3 g/dL (31.0-37.0); MCV 87.8 fL (80.0-100.0); Mean Platelet Volume 8.2; Monocytes # (A) 0.6 k/uL (0-1.0); Monocytes % (A) 7 %; Neutrophils # (A) 5.9 k/uL (1.3-7.7); Neutrophils % (A) 64 %; Platelet Count 228 k/uL (150-450); RBC 4.77 m/uL (4.30-5.90); RDW 12.5 % (11.5-15.5); WBC 9.2 k/uL (3.8-10.6)
[2019-09-18 12:01] LABS: ALT 19 U/L (21-72); AST 15 U/L (17-59); African American GFR (CKD) >90 (>60 ml/min/1.73 sqM); Albumin 4.3 g/dL (3.5-5.0); Alkaline Phosphatase 54 U/L (38-126); Amylase 44 U/L (30-110); Anion Gap 6 mmol/L; Blood Urea Nitrogen 14 mg/dL (9-20); Calcium 9.7 mg/dL (8.4-10.2); Carbon Dioxide 22 mmol/L (22-30); Chloride 108 mmol/L (98-107); Glucose 98 mg/dL (74-99); Non-African American GFR(CKD) >90 (>60 ml/min/1.73 sqM); Potassium 4.1 mmol/L (3.5-5.1); Sodium 136 mmol/L (137-145); Total Bilirubin 0.5 mg/dL (0.2-1.3); Total Protein 6.9 g/dL (6.3-8.2)
[2019-09-18 12:14] VITALS: RESP 16
[2019-09-18 13:08] VITALS: BP 103/65; PULSE 65; TEMP 98.1
== END 2019-09-18 13:14 | disposition home or self-care (01) ==
LOC: EC 10:50
DX: R10.13 Epigastric pain (principal); R11.2 Nausea with vomiting, unspecified; R19.7 Diarrhea, unspecified; Z87.891 Personal history of nicotine dependence
CPT/HCPCS: 36415; 80053; 82150; 83690; 85025; 82272; 99284; 96374; 96375 ×2; 96361; J2405; J2270; C9113

== ENCOUNTER → 2020-11-16 | Outpatient (CLI) | payer OTHER ==
--- NOTE | 2020-11-17 08:02 | MR ---
EXAMINATION TYPE: MR lumbar spine wo con DATE OF EXAM: 11/16/2020 COMPARISON: Prior lumbar MRI 07/01/2017 HISTORY: Low back pain, disc disease TECHNIQUE: Multiplanar, multisequence images of the lumbar spine were acquired. L1-L2: Normal disc appearance without desiccation. No herniation, protrusion or disc bulging. No ca nal stenosis is present. Foramina are patent bilaterally. L2-L3: Normal disc appearance without desiccation. No herniation, protrusion or disc bulging. No ca nal stenosis is present. Foramina are patent bilaterally. L3-L4: Normal disc appearance without desiccation. No herniation, protrusion or disc bulging. No ca nal stenosis is present. Foramina are patent bilaterally. L4-L5: Posterior disc bulge causes mild anterior mass effect on the thecal sac. No significant forami nal encroachment. L5-S1: Appearance is stable, small posterior disc bulge centrally causes minimal anterior mass effect on the thecal sac. Lateral extension endplate disc complex encroaches somewhat on the left neural fo ramen, some increased signal posterior aspect of the disc may represent annular tear. There is some f acet arthropathy change.. Lumbar segments are intact. No paraspinal masses are identified. Conus medullaris has a normal appe arance. There is some loss of disc height signal at L5-S1, loss of signal at L4-5. No significant spi nal stenosis. IMPRESSION: Stable degenerative disc disease.
== END | disposition home or self-care (01) ==
LOC: RADMRIMAIN 08:40
PROVIDERS: ATTEND Psychiatry & Neurology Neurology
DX: M51.36 Other intervertebral disc degeneration, lumbar region (principal)
CPT/HCPCS: 72148

== ENCOUNTER → 2022-05-02 | Outpatient (CLI) | payer OTHER ==
[2022-05-02 09:46] VITALS: BP 118/77; PULSE 56; RESP 18; TEMP 98.2
--- NOTE | 2022-05-02 10:08 | P.PAINPG ---
PQRS Measure Charge Sheet Comment: HISTORY OF PRESENT ILLNESS: 41 yr old male as a referral from Dr. Jose Freitas presents today with severe and chronic LBP secondary to DDD, disc bulges, neuroforaminal stenoses and facet arthropathy for evaluation. Pt states BL lower back pain is 6/10 in intensity, constant, burning pain without radiation of pain. No PT. Pain is alleviated slightly with heat, medications ([place]), hot baths, topicals, apply pressure, home based stretching regimen, repositioning and rest. PMH: GERD, OA, ADD/ADHD during childhood PSH: R Inguinal Hernia Repair, L Wrist Surgery, EGD, Tooth Extractin (2018) SH: Former tobacco user, No ETOH abuse, +Cannabis use. FH: Mother- Colon CA, Hep C. Father- HTN/ CAD/ PVD/Skin CA. All: NKDA Meds: See list REVIEW OF ORGAN SYSTEMS: CONSTITUTIONAL: No fevers or chills. No recent weight loss. NEUROLOGICAL: + numbness and tingling along the distal extremities. No seizure disorders or headaches. MUSCULOSKELETAL: + pain PSYCHIATRIC: Denies current depression or suicidal thoughts. Physical Examinations : Constitutional : Cooperative , not in acute distress . Neurologic : Cranial nerve II to XII intact. No focal neurological deficits. Psychiatric : alert & oriented x 3. Matching mood & appropriate affect. Judgment & insight intact. Musculoskeletal : Cervical Spine Motor strength in the deltoid and biceps: Normal right side. Normal Left side Motor strength biceps and the wrist extensors: Normal right side . Normal left side Motor strength in the triceps muscle: Normal right side. Normal left side Deep tendon reflexes: Normal at the biceps. Normal at Brachioradialis. Normal at triceps Vertebral body tenderness to deep palpation over Cervical facet loading test: positive bilaterally Spurling test: positive bilaterally Neck distraction test: positive bilaterally Nolvia sign: positive bilaterally Lumbar spine Motor strength lower extremities ,thigh and legs 5/5 Right side , 5/5 Left side Deep tendon reflexes : Normal Knee Jerk. Normal Ankle Jerk Vertebral body tenderness over L4 Lumbar facet Loading Test: positive Right / positive Left Range of motion of the lumbar spine Flexion 30 degrees, extension 10 degrees Straight Leg Raise test: Left/ Right positive at degree Derick test: positive right / positive left. Severe tenderness over the Sacroiliac joint on the Right / Left sides Gaenslen test: positive bilaterally Seated flexion test: positive bilaterally. Sacral spine : Severe tenderness over the Sacroiliac joint: right side / left side Range of motion: Flexion of the lumbar spine <60 degrees Range of motion: Extension of the lumbar spine <20 degrees Gaenslen's Test positive Carlitos's Test positive Derick test: positive right side / left side Thigh Thrust Test Sacral Thrust Test Imaging: MRI without contrast of the lumbar spine from 11/16/20 reviewed. Assessment/ Plan : Lumbar DDD, Lumbar facet arthropath Recommendation of LESI L3-L4. May need a series of injections, up to 3 within a 6 mo period, for optimal pain releif. Risks, benefits of procedure discussed and patient verbalized understanding. Denies aspirin or anti- coagulant use or medical history of diabetes. Protocol for discontinuation/ continuation of medications amparo procedure discussed. All questions answered. I have spent greater than 30 minutes on patient care today. Dr Mejia was available by phone for the evaluation of this patient. The time was used to review the medical records including relevant urine studies and Prescription history (MAPs), review of the available imaging, evaluation and examination of the patient, coordination of care with the medical staff and if applicable referring physicians, as well as creation of the medical record PQRS Narrative: Smoking Status Former smoker Home Medications: Ambulatory Orders Ibuprofen 800 mg PO TID 08/10/18 Acetaminophen Tab [Tylenol] 650 mg PO Q6HR PRN tab 08/13/18 Amoxicillin/Potassium Clav [Augmentin 875-125 Tablet] 1 each PO Q12HR #14 tab 08/13/18 Omeprazole [PriLOSEC] 20 mg PO AC-BID #60 cap 09/18/19 Ondansetron Odt [Zofran Odt] 4 mg PO Q8HR PRN #10 tab 09/18/19 Controlled Substance Measures - Controlled Substance Measures Is patient prescribed a controlled substance at discharge?: No
== END ==
LOC: PNWHC3 09:11
PROVIDERS: ATTEND Specialist
DX: M50.30 Other cervical disc degeneration, unspecified cervical region (principal); M51.36 Other intervertebral disc degeneration, lumbar region; M19.90 Unspecified osteoarthritis, unspecified site; Z86.59 Personal history of other mental and behavioral disorders; Z87.891 Personal history of nicotine dependence
CPT/HCPCS: 99211

== ENCOUNTER 2022-06-02 12:51 | Day surgery (SDC) | payer OTHER ==
[2022-05-31 10:42] VITALS: BMI 25.0
[~2022-06-02 12:51] MED LIST: LACTATED RINGERS 1,000 ML IV SCH; LIDOCAINE 1% (10MG/ML) FOR IV START INTRADERMA PRN
[2022-06-02 13:12] VITALS: RESP 18; TEMP 98.1
[2022-06-02] MEDS ORDERED: fentaNYL (PF) 50 MCG/ML 2 ML AMP ONE (13:46)
[2022-06-02] MEDS ORDERED: IOPAMIDOL M200 10 ML VIAL ONE (13:46)
[2022-06-02] MEDS ORDERED: methylPREDNISolone ACETATE 80 MG/ML 1 ML VIAL ONE (13:46)
[2022-06-02] MEDS ORDERED: MIDAZOLAM 2 MG/2 ML VIAL ONE (13:46)
--- NOTE | 2022-06-02 14:05 | P.PCN ---
Date of Procedure: 06/02/22 Procedure(s) Performed: PREOPERATIVE DIAGNOSIS: 1- Lumbar Degenerative Disc Diseases 2-Lumbar spondylosis with Facet arthropathy without myelopathy POSTOPERATIVE DIAGNOSIS: Same as preop diagnosis. PROCEDURE 1. Lumbar epidural steroid injection under fluoroscopic guidance at the L4-5 level. (Fluoroscopy imaging was available in radiology department) 2. Lumbar epidurogram. ANESTHESIA: moderate sedation with intravenous Versed 2 mg ,and fentanyle 100 Mcg Sedation start time : 1355 Sedation end time : 1403 EBL: Minimal PROCEDURE INDICATION: The patient with low back pain and radiculitis symptoms unresponsive to conservative treatment. Fluoroscopy was used to optimize visualization of the needle placement and to maximize safety. PROCEDURE DESCRIPTION / TECHNIQUE: The patient was seen and identified in the preoperative area. Risks, benefits, complications including but not limited to infections ,bleeding ,allergic reaction to the medications ,nerve damage and not complete pain releife , and alternatives were discussed with the patient. The patient agreed to proceed with the procedure and signed the consent. IV was started, and vital signs were stable. Patient was taken to the OR and time out was completed. The patient was placed in the prone position on procedure table and a pillow was placed under the abdomen to reduce lumbar lordosis. The lumbosacral area was prepped and draped in the usual sterile fashion.ere closely monitored during the procedure. Conscious sedation was used during the procedure to decrease patients anxiety. Vital signs was monitered during the entire procedure. Using anterior-posterior fluoroscopy, the L4-5 interlaminar space was identified and the skin over this site was marked and then infiltrated with 1% lidocaine subcutaneously. Subsequently, a 20-gauge Tuohy epidural needle was inserted and advanced toward the epidural space using the ``Loss of resistance technique and guided by AP and lateral fluoroscopy. The correct needle position in the e pidural space was verified with the injection of 2 mL of the water soluble contrast dye Isovue 200 contrast and observing an excellent epidurogram with the epidural spread of the dye, after negative aspiration for blood and CSF and in the absence of paresthesias. Again after negative aspiration, a 6 ml mixture containing 80 mg of Depo-medrol , and 2 ml of preservative free Normal Saline, and 2 ml of preservative free lidocaine 1% solution was injected and a washout of epidurogram was seen. Needle was withdrawn intact, skin was cleansed, and bandages were applied. COMPLICATIONS: None DISPOSITION / PLANS: The patient was placed in a supine position and transferred to the recovery area in a stable condition for observation. There was no evidence of lower extremity motor or sensory deficit after the procedure. Patient was discharged from the recovery room after meeting discharge criteria. Home discharge instructions were given to the patient by the staff. The patient was reexamined prior to discharge. The patient will schedule a follow up in the clinic in 2-4 weeks.
[2022-06-02] MEDS ORDERED: IV FLUID CONTINUATION 1,000 ML IV ONE (14:12)
--- NOTE | 2022-06-02 14:16 | FL ---
Intraoperative/procedural fluoroscopic services were provided. Total fluoroscopy time is 4 seconds wi th a total of 1 submitted images to PACS. Please see the operative/procedural note for further detail s.
[2022-06-02 14:28] VITALS: BP 102/49; PULSE 63
== END 2022-06-02 14:33 | disposition home or self-care (01) ==
LOC: ORPAIN 12:51
PROVIDERS: ATTEND Specialist
DX: M51.16 Intervertebral disc disorders with radiculopathy, lumbar region (principal); M47.26 Other spondylosis with radiculopathy, lumbar region; Z79.899 Other long term (current) drug therapy; Z87.891 Personal history of nicotine dependence; Z80.0 Family history of malignant neoplasm of digestive organs; Z82.49 Family history of ischemic heart disease and other diseases of the circulatory system; Z84.89 Family history of other specified conditions
CPT/HCPCS: 62323; J2250; J1040; J3010; Q9966

== ENCOUNTER → 2022-08-03 | Outpatient (CLI) | payer OTHER ==
[2022-08-03 08:13] VITALS: BP 130/83; PULSE 60; RESP 18
--- NOTE | 2022-08-03 13:45 | P.PAINPG ---
PQRS Measure Charge Sheet Comment: A 42 yr old male with a history of severe and chronic low back pain secondary to lumbar degenerative disc diseases and lumbar spondylosis with facet arthropathy without myelopathy presents today for evaluation s/p ARMANDO L4-L5. Pt states he experienced 50% pain relief x 3 days s/p procedure . Pain level is cur rently at 7/10 in intensity, constant, stabbing in chraacter w shooting towards . Pain is provoked by chiropractic treatments . Pain is alleviated with PT in 2019, home stretching regimen, heat, meds (Keenes, Robaxin), topicals, hot shower, repositioning and rest. Interventional pain procedures completed include Keenes, Robaxin from Dr Freitas Patient is currently on Keenes, Robaxin Patient denies any side effects of the medication(s), denies excessive drowsiness or sleepiness, denies suicidal ideation and reports that the current pain medication is helping to control the pain and improve activities of daily living. Patient denies any motor or sensory deficits. Patient denies any fever or night sweats, denies any change in the bowel movements or urination. Physical Examination: -Constitutional: Cooperative. Not in acute distress . - Neurologic: Cranial nerve II to XII intact. No focal neurological deficits. - Psychatric: Alert & oriented x 3. Matching mood & appropriate affect. Judgment and insight intact. - Musculoskeletal: Cervical spine: Muscle bulk/ tone/ strength in the bilateral upper extremities normal Vertebral body tenderness to palpation over Spurling test positive Distraction test positive Facet loading test positive Thoracic spine Muscle bulk / tone/ strength in the bilateral paraspinal muscles normal Vertebral body tender to palpation over Facet loading test positive Lumbar spine: Motor bulk/ tone/ strength lower extremities , thigh and legs : 5/5 Deep tendon reflexes : Normal Knee Jerk. Normal Ankle Jerk . Vertebral body tenderness to palpation over Lumbar Facet Loading Test positive w jump reflex over BL L4-L5, L5-S1 Straight Leg Raise: positive at 30 degrees right side/ left side Gaenslen's Test positive Sacral spine : Severe tenderness over the Sacroiliac joint: right side / left side Range of motion: Flexion of the lumbar spine <60 degrees Range of motion: Extension of the lumbar spine <20 degrees Gaenslen's Test positive Carlitos's Test positive Derick test: positive right side / left side Thigh Thrust Test Sacral Thrust Test Assessment and plan: Chronic low back pain secondary to lumbar degenerative disc disease , lumbar spondylosis with facet arthropathy without myelopathy Recommendation of BL MBB L4-L5, L5-S1. May need a series, up until RFA, for optimal pain relief. Risks, benefits of procedure discussed and pt v erbalized understanding. Denies anticoagulant use or medical history of diabetes. Recommenadtion of PT 2 x / wk x 6 wks w a focus on traction and decompression Re: M50.30 All patient questions answered I have spent less than 30 minutes on patient care today. Dr Mejia was available by phone for the evaluation of this patient. The time was used to review the medical records including relevant urine studies and Prescription history (MAPs), review of the available imaging, evaluation and examination of the patient, coordination of care with the medical staff and if applicable referring physicians, as well as creation of the medical record - Pain Location Lower Back Non-Pharmacological Interventions: Chiropractic Treatment, Heat, Home Exercise, Inactivity, Physical Therapy, Position/Reposition, Stretching Pharmacological Interventions: Epidural, PRN Medication, Topical Medication Neck Non-Pharmacological Interventions: Chiropractic Treatment, Heat, Home Exercise, Inactivity, Massage, Physical Therapy, Position/Reposition, Stretching Pharmacological Interventions: PRN Medication, Topical Medication PQRS Narrative: Smoking Status Former smoker Pain Intensity [Lower Back] 8 Scale Used Numeric (1 - 10) Hx Alcohol Use (MH) Yes: RARELY Home Medications: Ambulatory Orders Omeprazole [PriLOSEC] 20 mg PO AC-BID #60 cap 09/18/19 HYDROcodone/APAP 10-325MG [Keenes 10-325] 1 tab PO Q4HR PRN 05/31/22 methocarbamoL [Methocarbamol] 500 mg PO DAILY PRN 08/03/22 Controlled Substance Measures - Controlled Substance Measures Is patient prescribed a controlled substance at discharge?: No
== END ==
LOC: PNWHC3 07:35
PROVIDERS: ATTEND Specialist
DX: M47.817 Spondylosis without myelopathy or radiculopathy, lumbosacral region (principal); M51.36 Other intervertebral disc degeneration, lumbar region; M47.816 Spondylosis without myelopathy or radiculopathy, lumbar region; M50.30 Other cervical disc degeneration, unspecified cervical region; G89.29 Other chronic pain; F10.90 Alcohol use, unspecified, uncomplicated; Z87.891 Personal history of nicotine dependence
CPT/HCPCS: 99211

== ENCOUNTER 2022-09-09 12:03 | Day surgery (SDC) | payer OTHER ==
[2022-09-09 12:57] VITALS: RESP 16
[2022-09-09] MEDS ORDERED: ROPIVACAINE 5 MG/ML 20 ML AMPULE ONE (13:05)
[2022-09-09] MEDS ORDERED: fentaNYL (PF) 50 MCG/ML 2 ML AMP ONE (13:05)
[2022-09-09] MEDS ORDERED: MIDAZOLAM 2 MG/2 ML VIAL ONE (13:05)
[2022-09-09] MEDS ORDERED: methylPREDNISolone ACETATE 40 MG/ML 1 ML VIAL ONE (13:05)
--- NOTE | 2022-09-09 13:19 | P.PCN ---
Date of Procedure: 09/09/22 Procedure(s) Performed: PREOPERATIVE DIAGNOSIS : 1- Lumbar spondylosis with Facet Arthropathy without myelopathy . 2- Lumber degenerative disc disease POSTOPERATIVE DIAGNOSIS: 1- Lumbar spondylosis with Facet Arthropathy without myelopathy . 2- Lumber degenerative disc disease PROCEDURE: Diagnostic bilateral L3 , L4 , and L5 medial branch block under fluoroscopy guidance(fluoroscopy images available in the radiology Department ) ( To target the facet joint between bilateral L4-5 , and L5-S1 )# 1st ANESTHESIA:, Monitored anesthesia care as per anesthesia department. EBL: Minimal COMPLICATION: None PROCEDURE INDICATION: Chronic low back pain secondary to Facet arthropathy unresponsive to conservative treatment. PROCEDURE DESCRIPTION: the patient was seen and identified in the preop holding area , risks and benefits and possible complications of the procedure and alternative were discussed with the patient, and the patient agreed to proceed with the procedure and signed the consent and vital signs monitored during the procedure and fluoroscopy was used to maximize the benefit and accuracy of the needle placement, and sedation was given to decrease patient anxiety, patient was taken to the procedure room and placed in prone position vital signs monitored in the back prepped with chlorhexidine X3 then under strict sterile technique using a right oblique fluoroscopy ,the junction of the transverse process and the superior articulating process of the right L3 , L4 , and L5 vertebra which corresponding to the fluoroscopy image of the eye of the Kiran dog on the block side for the medial branches and subsequently , after local infiltration of skin and subcu tissuies with Ropivacaine 0.5 % , one mL at each level ,then 22-gauge Quincke-type needles , 3 needle was used , each one of them placed at the junction of the base of the transverse process and the superior articular process at the appropriate level, and the needle was advanced until the periosteum contacted, needle placement confirmed with AP oblique and lateral view and after appropriate needle placement confirmed, and after negative aspiration for heme and CSF and there was no paresthesia 1-1/2 mL of Ropivacaine 0.5% mixed with 20 mg Depo-Medrol , then half mL injected at each level after negative aspiration the needle subsequently removed and the same procedure repeated for the left side at left side at L3 , L4 and L5 levels. At the end of the procedure and the needles removed and a bandage applied after the skin was cleaned the cleaning solution patient taken to recovery room in stable condition and monitors in the recovery room for 20-30 minutes and discharged home in stable condition after discharge criteria met and patient will follow up with the pain clinic in 2-4 weeks
[2022-09-09] MEDS ORDERED: IV FLUID CONTINUATION 1,000 ML IV ONE (13:22)
--- NOTE | 2022-09-09 13:27 | FL ---
EXAMINATION TYPE: FL guided pain mgmt statistic DATE OF EXAM: 09/09/2022 HISTORY: Fluoroscopy time 8 seconds of fluoroscopy provided. IMPRESSION: 1. Fluoroscopy time.
[2022-09-09 14:10] VITALS: BP 104/88; PULSE 71
== END 2022-09-09 14:14 | disposition home or self-care (01) ==
LOC: ORPAIN 12:03
PROVIDERS: ATTEND Specialist
DX: M51.36 Other intervertebral disc degeneration, lumbar region (principal); M47.816 Spondylosis without myelopathy or radiculopathy, lumbar region; M41.86 Other forms of scoliosis, lumbar region; K21.9 Gastro-esophageal reflux disease without esophagitis; Z87.891 Personal history of nicotine dependence; Z79.891 Long term (current) use of opiate analgesic; Z79.899 Other long term (current) drug therapy
CPT/HCPCS: 64493; 64494; J2250; J1030; J3010; J2795

== ENCOUNTER → 2022-11-14 | Outpatient (CLI) | payer OTHER ==
[2022-11-14 14:53] VITALS: BP 116/86; PULSE 65; RESP 18; TEMP 97.5
--- NOTE | 2022-11-14 15:47 | P.PAINPG ---
PQRS Measure Charge Sheet Comment: A 42 yr old male with a history of severe and chronic low back pain secondary to lumbar DDD and spondylosis with facet arthropathy without myelopathy presents today for evaluation s/p BL facet block of the medial branches L4-L5, L5-S1 #1. Pt states he experienced 0 % pain relief s/p procedure. Pain level is provoked at 7 /10 in intensity, constant, localized in the lumbar spine, sharp/ sore in character without radiation. Pain is provoked by chiropractic treatments, codl weather and sitting for periods of 30 min or more. Pain is alleviated with home exercise daily, medications, ice, topicals, THC products, repositioning and rest. Interventional pain procedures completed include BL MBB L3-L5 x1, LESI L4-L5 x1 Patient is currently on [place] from Dr Cutler Patient denies any side effects of the medication(s), denies excessive drowsiness or sleepiness, denies suicidal ideation and reports that the current pain medication is helping to control the pain and improve activities of daily living. Patient denies any motor or sensory deficits. Patient denies any fever or night sweats, denies any change in the bowel movements or urination. Physical Examination: -Constitutional: Cooperative. Not in acute distress . - Neurologic: Cranial nerve II to XII intact. No focal neurological deficits. - Psychatric: Alert & oriented x 3. Matching mood & appropriate affect. Judgment and insight intact. - Musculoskeletal: Cervical spine: Muscle bulk/ tone/ strength in the bilateral upper extremities normal Vertebral body tenderness to palpation over Spurling test positive Distraction test positive Facet loading test positive Thoracic spine Muscle bulk / tone/ strength in the bilateral paraspinal muscles normal Vertebral body tender to palpation over Facet loading test positive Lumbar spine: Motor bulk/ tone/ strength lower extremities , thigh and legs : 5/5 Deep tendon reflexes : Normal Knee Jerk. Normal Ankle Jerk . Vertebral body tenderness to palpation over Lumbar Facet Loading Test positive BL paraspinal TTP over L1-L4 Straight Leg Raise: positive at 30 degrees right side/ left side Gaenslen's Test positive Sacral spine : Severe tenderness over the Sacroiliac joint: right side / left side Range of motion: Flexion of the lumbar spine <60 degrees Range of motion: Extension of the lumbar spine <20 degrees Gaenslen's Test positive Derick test: positive right side / left side Thigh Thrust Test Sacral Thrust Test Assessment and plan: Chronic LBP secondary to lumbar DDD, spondylosis with facet arthropathy without myelopathy Recommendation of BL TPIs L1-L4. May need a series of injections for optimal pain relief. Risks, benefits of procedure discussed and pt verbalized understanding. Denies anticoagulant use or medical history of diabetes. Massage therapy two times weekly x 6 wks Dx: M51.36 All patient questions answered I have spent less than 30 minutes on patient care today. Dr Mejia was available by phone for the evaluation of this patient. The time was used to review the medical records including relevant urine studies and Prescription history (MAPs), review of the available imaging, evaluation and examination of the patient, coordination of care with the medical staff and if applicable referring physicians, as well as creation of the medical record PQRS Narrative: Smoking Status Former smoker Hx Alcohol Use (MH) Yes: RARELY Home Medications: Ambulatory Orders Omeprazole [PriLOSEC] 20 mg PO AC-BID #60 cap 09/18/19 HYDROcodone/APAP 10-325MG [[place] 10-325] 1 tab PO Q4HR PRN 05/31/22 methocarbamoL [Methocarbamol] 500 mg PO DAILY PRN 08/03/22 Controlled Substance Measures - Controlled Substance Measures Is patient prescribed a controlled substance at discharge?: No
== END ==
LOC: PNWHC3 12:05
PROVIDERS: ATTEND Specialist
DX: M47.816 Spondylosis without myelopathy or radiculopathy, lumbar region (principal); M51.36 Other intervertebral disc degeneration, lumbar region; G89.29 Other chronic pain; Z87.891 Personal history of nicotine dependence
CPT/HCPCS: 99211

== ENCOUNTER 2022-11-19 15:30 | Emergency (ER) | payer OTHER ==
[2022-11-19 15:45] VITALS: RESP 18
--- NOTE | 2022-11-19 16:33 | ED ---
Upper Extremity HPI - General Chief Complaint: Extremity Injury, Upper Stated Complaint: rt hand injury Time Seen by Provider: 11/19/22 16:06 Source: patient, RN notes reviewed Mode of arrival: ambulatory Limitations: no limitations - History of Present Illness Initial Comments: Well-appearing 42-year-old male presents ambulatory to the emergency room after injuring his right little finger while sledding approximately 30 minutes ago. Denies any other injury. MD Complaint: Injury to:: right, finger (little finger) -: minutes(s) (30) Other Injuries: none Place: outdoors (sledding) Associated Symptoms: denies other symptoms Treatments Prior to Arrival: cold therapy - Related Data Home Medications Medication Instructions Recorded Confirmed HYDROcodone/APAP 10-325MG [[place] 1 tab PO Q4HR PRN 05/31/22 11/14/22 10-325] methocarbamoL [Methocarbamol] 500 mg PO DAILY PRN 08/03/22 11/14/22 Previous Rx's Medication Instructions Recorded Omeprazole [PriLOSEC] 20 mg PO AC-BID #60 cap 09/18/19 Ibuprofen [Motrin] 600 mg PO Q8HR PRN #30 tab 11/19/22 Allergies Allergy/AdvReac Type Severity Reaction Status Date / Time No Known Allergies Allergy Verified 11/19/22 15:44 Review of Systems ROS Statement: Those systems with pertinent positive or pertinent negative responses have been documented in the HPI. ROS Other: All systems not noted in ROS Statement are negative. Past Medical History Past Medical History: GERD/Reflux, Osteoarthritis (OA) Additional Past Medical History / Comment(s): SCOLIOSIS,"2 BULGING DISC" "PINCHED NERVE", CHRONIC BACK PAIN, PAST BLEEDING ULCERS X2, LT WRIST(PAST INJURY SHATTERED WRIST(SX), VALDEMAR CARPAL TUNNEL, ADHD CHILD. History of Any Multi-Drug Resistant Organisms: None Reported Past Surgical History: Hernia Repair, Orthopedic Surgery Additional Past Surgical History / Comment(s): 08-10-18 tooth extracted 08-10-18 other hx:L wrist sx(bone removed), egd, rt ing hernia repair. PAIN CLINIC PROCEDURES Past Anesthesia/Blood Transfusion Reactions: No Reported Reaction Additional Past Anesthesia/Blood Transfusion Reaction / Comment(s): has never had any blood transfusion Past Psychological History: No Psychological Hx Reported Smoking Status: Former smoker Past Alcohol Use History: Rare Past Drug Use History: Marijuana - Past Family History Mother Family Medical History: Cancer, Liver Disease Additional Family Medical History / Comment(s): colon ca, hep-c Father Family Medical History: Cancer, Coronary Artery Disease (CAD), Hypertension, Vascular Disorder Additional Family Medical History / Comment(s): stents, skin cancer General Exam Limitations: no limitations General appearance: alert, in no apparent distress Head exam: Present: atraumatic Eye exam: Present: normal appearance Respiratory exam: Absent: respiratory distress, accessory muscle use Cardiovascular Exam: Present: regular rate Right Hand Wrist exam: Present: tenderness, swelling (Right fifth digit) Vascular: Present: normal capillary refill, radial pulse. Absent: vascular compromise Neurological exam: Present: alert, oriented X3, normal gait Psychiatric exam: Present: normal affect, normal mood Skin exam: Present: warm, dry, normal color. Absent: cyanosis, diaphoretic Course Vital Signs 11/19/22 11/19/22 15:42 17:15 Temperature 97.6 F 97.7 F Pulse Rate 95 87 Respiratory 18 18 Rate Blood Pressure 110/72 107/78 O2 Sat by Pulse 95 96 Oximetry Procedures - Orthopedic Splinting/Casting Injury #1 Side: right Upper Extremity Immobilizer: synthetic pre-padded splint (4th 5th digits) Medical Decision Making - Medical Decision Making X-ray interpreted by me shows a fracture right fifth proximal phalanx. Radiologist's impression a minimally displaced fracture of the right fifth digit proximal phalanx with soft tissue swelling. Patient was offered grace tape versus OCL and opted for a OCL splint. Splint applied, neurovascularly intact prior to and post splinting. He was directed to rest, ice, elevate and take Tylenol and Motrin for pain. Follow-up with orthopedics. Return for new or concerning symptoms. He is agreeable to this plan of care. Case discussed with Dr. Vazquez Was pt. sent in by a medical professional or institution? @ -no Did you speak to anyone other than the patient for history? @ -no Did you review nursing and triage notes? @ -yes i agree Were old charts reviewed? @ -no Differential Diagnosis? @ -Fracture, dislocation, contusion EKG interpreted by me (3pts min.)? @ -n/a X-rays interpreted by me (1pt min.)? @ -Yes as above CT interpreted by me (1pt min.)? @ -[none] U/S interpreted by me (1pt. min.)? @ -[none] What testing was considered but not performed? (CT, X-rays, U/S, labs)? Why? @ no What meds were considered but not given? Why? @ -none Did you discuss the management of the patient with other professionals? @ -no Did you reconcile home meds? @ -no Was smoking cessation discussed for >3mins.? @ -no former smoker Was critical care preformed (if so, how long)? @ -no Were there social determinants of health that impacted care today? How? (Homelessness, low income, unemployed, alcoholism, drug addiction, t ransportation, low edu. Level, literacy, decrease access to med. care, fdc, rehab)? @ -none Was there de-escalation of care discussed even if they declined? (Discuss DNR or withdrawal of care, Hospice)? @ -no What co-morbidities impacted this encounter? (DM, HTN, Smoking, COPD, CAD, Cancer, CVA, Hep., AIDS, mental health diagnosis, sleep apnea, morbid obesity)? @ -former smoker ( 3 months ago quit) Was patient admitted / discharged? @ -Discharged Undiagnosed new problem with uncertain prognosis? @ -[none] Drug Therapy requiring intensive monitoring for toxicity (Heparin, Nitro, Insulin, Cardizem)? @ -no Were any procedures done? @ -splinting Diagnosis/symptom? @ -Fifth proximal phalanx fracture Acute, or Chronic, or Acute on Chronic? @ -acute Uncomplicated (without systemic symptoms) or Complicated (systemic symptoms)? @ -Uncomplicated Side effects of treatment? @ -[none] Exacerbation, Progression, or Severe Exacerbation] @ -[no] Poses a threat to life or bodily function? @ -[no] Disposition Clinical Impression: Proximal phalanx fracture of finger Disposition: HOME SELF-CARE Condition: Good Instructions (If sedation given, give patient instructions): Finger Fracture (ED) Additional Instructions: Rest, ice, elevate and wear splint until seen by orthopedics. Tylenol Motrin as needed for pain. Return to the emergency room with any new or concerning symptoms. Prescriptions: Ibuprofen [Motrin] 600 mg PO Q8HR PRN #30 tab PRN Reason: Pain Is patient prescribed a controlled substance at d/c from ED?: No Referrals: Juan Cutler MD [Primary Care Provider] - 1-2 days Kenneth Eid DO [Doctor of Osteopathic Medicine] - 1-2 days Time of Disposition: 16:57
--- NOTE | 2022-11-19 16:39 | XR ---
EXAMINATION TYPE: XR hand complete RT DATE OF EXAM: 11/19/2022 4:33 PM INDICATION: Patient age:Male; 42 years old; Reason for study: 5th digit pain; PHH. COMPARISON: None TECHNIQUE: Frontal, lateral and oblique views of the right hand were obtained. FINDINGS: Minimally displaced fracture of the right proximal phalanx. Moderate soft tissue swelling o f the fifth digit. No additional fractures are identified. Fractures do not appear to extend intra-ar ticularly. No evidence for displacement or radiopaque foreign bodies. IMPRESSION: Minimally displaced fracture the right fifth digit proximal phalanx with associated soft tissue swell ing.
[2022-11-19] MEDS ORDERED: IBUPROFEN 600 MG TAB PO STA (16:55)
[2022-11-19] MEDS ORDERED: ACETAMINOPHEN TAB 325 MG TAB PO STA (16:55)
[2022-11-19 19:23] VITALS: BP 107/78; PULSE 87; TEMP 97.7
== END 2022-11-19 17:15 | disposition home or self-care (01) ==
LOC: EC 15:30
DX: S62.616A Displaced fracture of proximal phalanx of right little finger, initial encounter for closed fracture (principal); M19.90 Unspecified osteoarthritis, unspecified site; F12.90 Cannabis use, unspecified, uncomplicated; Z87.891 Personal history of nicotine dependence; W19.XXXA Unspecified fall, initial encounter; Y93.23 Activity, snow (alpine) (downhill) skiing, snowboarding, sledding, tobogganing and snow tubing
CPT/HCPCS: 99283

== ENCOUNTER 2025-05-11 10:26 | Emergency (ER) | payer OTHER ==
[2025-05-11 10:36] VITALS: RESP 20
--- NOTE | 2025-05-11 10:57 | XR ---
EXAMINATION TYPE: XR knee complete RT DATE OF EXAM: 05/11/2025 10:52 AM INDICATION: Patient age:Male; 44 years old; Reason for study: fall, pain; PHH. pain COMPARISON: None. TECHNIQUE: The Right knee(s) was examined in Frontal, lateral and oblique projections. FINDINGS: No evidence of any acute osseous pathology, soft tissue swelling, or joint effusion is no jacqui. IMPRESSION: No acute osseous pathology. [facility], , 05/11/2025 10:54 AM
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
[2025-05-11] MEDS: IBUPROFEN 600 MG TAB PO STA (11:29)
[2025-05-11] MEDS: ACETAMINOPHEN TAB 325 MG TAB PO STA (11:29)
[2025-05-11 11:37] VITALS: BP 121/89; PULSE 76; TEMP 98
== END 2025-05-11 14:06 | disposition home or self-care (01) ==
LOC: EC 10:26
DX: S80.01XA Contusion of right knee, initial encounter (principal); Z87.891 Personal history of nicotine dependence; V18.2XXA Unspecified pedal cyclist injured in noncollision transport accident in nontraffic accident, initial encounter
CPT/HCPCS: 99283